=== PATIENT | female | born 1965 | race Caucasian/White ===

== ENCOUNTER → 2019-07-09 | Outpatient (CLI) | payer OTHER ==
--- NOTE | 2019-07-09 16:42 | RADIOLOGY REPORT (SQ) ---
EXAM DESCRIPTION: U/S RETROPERITON (RENAL/AORTA) COMPLETED DATE/TIME: 07/09/2019 1:21 pm REASON FOR STUDY: N20.0 CALCULUS OF KIDNEY, N18.1 CHRONIC KIDNEY DISEASE, STAGE 1 N18.1 CHRONIC KID BRADLEY DISEASE, STAGE 1 N20.0 CALCULUS OF KIDNEY COMPARISON: 08/19/2015 TECHNIQUE: Dynamic and static grayscale images acquired of the kidneys and bladder and recorded on P ACS. Additional selected color Doppler and spectral images recorded. LIMITATIONS: None. FINDINGS: RIGHT KIDNEY: The right kidney measures 10.9 x 4.8 x 5.6 cm, normal size. Mild cortical thinning and lobulated contour to the kidney, may be related prior inflammatory changes. Diffuse inc reased echogenicity of the kidney, may be on the basis of medical renal disease. As on the prior exa mination, multiple echogenic foci are identified within the kidney, one of the largest measures 7 x 3 x 7 mm suggesting renal calculi. No evidence of hydronephrosis. LEFT KIDNEY: The left kidney measures 11.2 x 4.9 x 5.9 cm, normal size. Mild cortical thinning and lobulated contour to the kidney may be related prior inflammatory changes. Diffuse increased echogen icity of the kidneys may be on the basis of underlying medical renal disease. Multiple echogenic foc i identified within the kidney with one of the largest measure 5 x 5 x 2 mm, may represent renal calc jennyfer. No evidence of hydronephrosis. BLADDER: The urinary bladder is incompletely distended. OTHER FINDINGS: No other significant finding. IMPRESSION: 1. Diffuse increased echogenicity of the kidneys may be related to the patient's underl ayden history of renal disease. 2. As on the prior examination dated 08/19/2015, echogenic foci are identified within the kidneys, willis ggest renal calculi. 3. No evidence of hydronephrosis. TECHNICAL DOCUMENTATION: JOB ID: [id number] [employer]- All Rights Reserved Reading location - IP/workstation name: [email or web address]
== END ==
LOC: RAD 12:39
PROVIDERS: ATTEND Internal Medicine Nephrology
DX: N20.0 Calculus of kidney (principal); N18.1 Chronic kidney disease, stage 1
CPT/HCPCS: 76770

== ENCOUNTER → 2019-09-06 | Outpatient (CLI) | payer OTHER ==
--- NOTE | 2019-09-06 10:46 | RADIOLOGY REPORT (SQ) ---
EXAM DESCRIPTION: U/S RETROPERITON (RENAL/AORTA) COMPLETED DATE/TIME: 09/06/2019 9:47 am REASON FOR STUDY: N39.0 URINARY TRACT INFECTION, SITE NOT SPECIFIED N39.0 URINARY TRACT INFECTION, SITE NOT SPECIFIED COMPARISON: None. TECHNIQUE: Dynamic and static grayscale images acquired of the kidneys and bladder and recorded on P ACS. Additional selected color Doppler and spectral images recorded. LIMITATIONS: None. FINDINGS: RIGHT KIDNEY: Normal size measuring 11.4 cm. Normal echogenicity. No solid or suspicious m asses. No hydronephrosis. No calcifications. LEFT KIDNEY: Normal size measuring 10 cm. Normal echogenicity. No solid or suspicious masses. No hyd ronephrosis. No calcifications. BLADDER: No masses. OTHER FINDINGS: No other significant finding. IMPRESSION: No hydronephrosis. TECHNICAL DOCUMENTATION: JOB ID: [id number] [employer]- All Rights Reserved Reading location - IP/workstation name: [email or web address]
== END ==
LOC: RAD 09:07
PROVIDERS: ATTEND Urology
DX: N39.0 Urinary tract infection, site not specified (principal); N20.0 Calculus of kidney; N20.1 Calculus of ureter
CPT/HCPCS: 76770